=== PATIENT | female | born 1970 | race Caucasian/White ===

== ENCOUNTER 2018-03-20 04:03 | Day surgery (SDC) | payer OTHER ==
[~2018-03-20] VITALS: Ht 172.7 cm; Wt 76.7 kg
[~2018-03-20 04:03] MED LIST: BUSP10TA95 PO; CHOL10005 PO; FEXO-72 PO; IBUP-136 PO; MULT1CAP59 PO; THYR60TA25 PO
[2018-03-20] MEDS ORDERED: PROPOFOL EMUL(*) 10MG/ML 20 ML 20 ML ONE ×2 (07:06→08:16)
[2018-03-20] MEDS ORDERED: NORMOSOL R SOLN(*) 1000 ML BAG 1,000 ML IV PRN (07:10)
[2018-03-20] MEDS ORDERED: LIDOCAINE/SOD BICARB 8.4% SYR ID ONE (07:10)
[2018-03-20 07:16] VITALS: BP 148/85
[2018-03-20 08:38] VITALS: BP 130/83
--- NOTE | 2018-03-20 08:43 | Short(Outpt) Discharge Summary ---
Discharge Summary Reason for Hosp/Final Diag: (1) Family history of colorectal cancer Hospital Course & Plan: Colonoscopy with polypectomy x1 completed without problems. Departure Discharge to: Home, Self Care Discharge Instructions Home Meds Reported Medications Multivitamin (MULTIVITAMINS) 1 Each Capsule, 1 EACH PO DAILY, CAPSULE 03/08/18 Cholecalciferol (Vitamin D3) (VITAMIN D3) 1,000 Unit Tablet, 3000 UNIT PO DAILY, TAB 03/08/18 Ibuprofen (IBUPROFEN) Unknown Strength Capsule, PO PRN, CAPSULE 02/13/18 Fexofenadine Hcl (AMANDA ALLERGY) Unknown Strength Tablet, PO BID 02/13/18 Thyroid,Pork (ARMOUR THYROID) 60 Mg Tablet, 60 MG PO DAILY 02/13/18 Buspirone Hcl (BUSPIRONE HCL) 10 Mg Tablet, 10 MG PO BID, #20 TAB 02/13/18 Diet: Regular Activity: As Tolerated Special Instructions: Your colonoscopy was completed without problems and your prep was excellent (Good Job!!). I removed a tiny polyp from your rectum and it was sent to pathology. I didn't find any other polyps or other problems in your colon. Your hemorrhoids don't appear to be active today and I don't recommend any sort of hemorrhoid surgery at this time unless they cause you frequent symptoms, then you may feel better after hemorrhoidectomy although recovery from surgery is very painful for 2-3 weeks afterward. My office will call you in the next week or so and let you know what the polyp is but, in any case, your next colonoscopy should be in 5 years due to your family history. AHMET RICHTER MD Mar 20, 2018 08:43
[2018-03-20 08:45] VITALS: BP 136/90
[2018-03-20 08:58] VITALS: BP 146/89
[2018-03-20 09:00] VITALS: BP 138/99
== END 2018-03-20 09:10 | disposition home or self-care (01) ==
LOC: OR 04:03
PROVIDERS: ATTEND Surgery
DX: Z12.11 Encounter for screening for malignant neoplasm of colon (principal); K62.1 Rectal polyp
CPT/HCPCS: 00811; 45380; 88305; J2704